=== PATIENT | male | born 2000 | race African-American/Black ===

== ENCOUNTER 2022-07-23 13:38 | Emergency (ER) | payer SELFPAY ==
[~2022-07-23] VITALS: Ht 170.2 cm; Wt 60.0 kg
[2022-07-23] MEDS ORDERED: LORAZEPAM 2MG/ML CPJ IV STA (15:11)
[2022-07-23] MEDS ORDERED: LORAZEPAM 2MG/ML CPJ IM STA (15:11)
[2022-07-23] MEDS ORDERED: OLANZAPINE 10 MG/VIAL IM STA (15:11)
[2022-07-23] MEDS ORDERED: SODIUM CHLORIDE 0.9% 1,000 ML IV ONE (15:15)
[2022-07-23 16:42] LABS: BASOPHILS % 0.5 % (0.0-2.0); EOSINOPHILS % 1.8 % (0.0-5.0); HEMOGLOBIN. 12.1 g/dL (14.0-18.0); LYMPHOCYTES % 18.2 % (20.0-50.0); MEAN CORPUSCULAR HEMOGLOBIN 29.8 pg (28.0-32.0); MEAN CORPUSCULAR VOLUME 88.9 fL (80.0-94.0); MONOCYTES % 13.6 % (2.0-8.0); NEUTROPHILS % 65.9 % (40.0-76.0); PLATELET 313 x1000/uL (130-400); RED BLOOD CELL COUNT 4.05 mill/uL (4.7-6.1); RED CELL DISTRIBUTION WIDTH 14.4 % (11.6-14.6)
[2022-07-23 16:54] LABS: CHLORIDE 105 mEq/L (98-107)
[2022-07-23 17:01] LABS: ETHANOL BLOOD < 10 mg/dL
[2022-07-23 18:53] LABS: *AMPHETAMINES SCREEN URINE PRESUMTIVE POSITIVE (NEGATIVE); *BARBITURATES SCREEN URINE NEGATIVE (NEGATIVE); *BENZODIAZEPINES SCREEN URINE NEGATIVE (NEGATIVE); *COCAINE SCREEN URINE NEGATIVE (NEGATIVE); CANNABINOID URINE SCREEN PRESUMTIVE POSITIVE (NEGATIVE); METHADONE URINE SCREEN NEGATIVE (NEGATIVE); OPIATES URINE SCREEN NEGATIVE (NEGATIVE); PHENCYCLIDINE URINE SCREEN NEGATIVE (NEGATIVE)
[2022-07-24 02:00] VITALS: BP 133/72
== END 2022-07-24 04:55 | disposition home or self-care (01) ==
LOC: ER 13:53 → EDBD 13:53 → ER 07-24 04:55
DX: T40.2X1A Poisoning by other opioids, accidental (unintentional), initial encounter (principal); R41.82 Altered mental status, unspecified; Z93.3 Colostomy status; Y92.488 Other paved roadways as the place of occurrence of the external cause
CPT/HCPCS: 36415; 70450; 80053; 80305; 80307; 80320; 80329; 82962; 83690; 84484; 85025; 93005; 96360; 96361; 96372; 99285; J2060; J3490; J7030; G0480